=== PATIENT | female | born 1980 | race Caucasian/White ===

== ENCOUNTER 2016-06-17 19:32 | Emergency (ER) | payer BC ==
[2016-06-17] MEDS ORDERED: OPTIRAY 350 100 ML VIAL HMH IV ONE (19:33)
[2016-06-17] MEDS ORDERED: ONDANSETRON 4 MG VIAL ONE (21:12)
[2016-06-17] MEDS ORDERED: KETOROLAC 30 MG/ML VIAL ONE (21:12)
[2016-06-17] MEDS ORDERED: DILAUDID 1 MG/ML AMP ONE (21:58)
[2016-06-17] MEDS ORDERED: CEFTRIAXONE 1 GM VIAL ONE (23:15)
[2016-06-17] MEDS ORDERED: humuLIN REG INSULIN ONE (23:15)
[2016-06-17] MEDS ORDERED: SODIUM CHLORIDE 0.9% 100 ML IV ONE (23:16)
[2016-06-18] MEDS ORDERED: DILAUDID 1 MG/ML AMP ONE (00:41)
== END 2016-06-18 01:42 | disposition home or self-care (01) ==
LOC: ER 19:32
DX: N30.00 Acute cystitis without hematuria (principal); E11.65 Type 2 diabetes mellitus with hyperglycemia; N83.201 Unspecified ovarian cyst, right side
CPT/HCPCS: 36415; 74177; 76830; 80053; 81001; 82947; 83036; 83690; 84703; 85025; 87077; 87088; 87186; 87491; 87591; 87800; 96365; 96372; 96375; 96376